=== PATIENT | male | born 1950 | race African-American/Black ===

== ENCOUNTER 2019-01-25 06:47 | Inpatient (IN) | payer MEDICARE, OTHER ==
[~2019-01-25] VITALS: Ht 190.5 cm; Wt 99.8 kg
--- NOTE | 2019-01-25 07:39 | NUR ---
RN MS NOTES Received patient on room air, no sob noted. Patient awaiting for surgery at this time. bed at the lowest setting, call light within reach.
[2019-01-25] MEDS ORDERED: HYDR-4385 PO (10:03)
[2019-01-25] MEDS ORDERED: IBUP-1953 PO (10:03)
[2019-01-25] MEDS ORDERED: FLUT9.9S NS (10:03)
[2019-01-25] MEDS ORDERED: CETI1TAB9 PO (10:03)
[2019-01-25] MEDS ORDERED: DILT240C2 PO (10:03)
[2019-01-25] MEDS ORDERED: IV NS 0.9% 1,000 ML IV PRN (11:08)
--- NOTE | 2019-01-25 11:12 | NUR ---
RN MS NOTES Patient left AMA, patient signed the paper. Patient claims he has all his belongings with him. Patient signed the AMA form.
[2019-01-25] MEDS ORDERED: ONDANSETRON HCL/PF 4 MG/2 ML VIAL IVP PRN (11:30)
[2019-01-25] MEDS ORDERED: HYDROCODONE/APAP 5/325MG 1 EACH TABLET PO PRN ×2 (11:30)
[2019-01-25] MEDS ORDERED: DOCUSATE SODIUM 250 MG CAPSULE PO PRN (11:30)
[2019-01-25] MEDS ORDERED: cetrizine 10 MG TABLET PO SCH (11:30)
[2019-01-25] MEDS ORDERED: SENNOSIDES 8.6 MG TABLET PO PRN (11:30)
[2019-01-26] MEDS ORDERED: DILTIAZEM HCL CD 240 MG PO SCH (09:00)
[2019-01-26] MEDS ORDERED: FLUTICASONE PROPIONATE 16 GM BOTTLE NS SCH (09:00)
== END 2019-01-25 11:00 | disposition left against medical advice (07) | DRG 554 ==
LOC: DS 06:47 → MED 06:48
PROVIDERS: ADMIT Registered Nurse; ATTEND Registered Nurse
DX: M19.012 Primary osteoarthritis, left shoulder (principal); E66.9 Obesity, unspecified; J30.2 Other seasonal allergic rhinitis; I49.9 Cardiac arrhythmia, unspecified; Z91.013 Allergy to seafood
CPT/HCPCS: G0378